=== PATIENT | male | born 1980 | race Caucasian/White ===

== ENCOUNTER → 2020-01-04 | Outpatient (CLI) | payer OTHER ==
--- NOTE | 2020-01-05 06:32 | XR ---
EXAMINATION TYPE: XR cervical spine limited DATE OF EXAM: 01/04/2020 TECHNIQUE: Frontal, lateral, swimmers, and open mouth view of the cervical spine are obtained. HISTORY: Paresthesia of skin pain and numbness into extremities. COMPARISON: None FINDINGS: The cervical spine is visualized in its entirety from C1 thru the top of T1 level, it is s traightened in alignment without evidence of acute fracture or dislocation. The pre-vertebral soft t issue appears within normal limits. The C1-C2 articulation is within normal limits on the open mouth view. Vertebral body heights and disc space heights are maintained. Overlying soft tissue is unremar kable. IMPRESSION: As above.
--- NOTE | 2020-01-05 06:34 | XR ---
EXAMINATION TYPE: XR lumbar spine 2 or 3V DATE OF EXAM: 01/04/2020 CLINICAL HISTORY: Low back pain causing numbness and pain down both legs for one month. TECHNIQUE: Frontal and lateral images of the lumbar spine are obtained. COMPARISON: None FINDINGS: There are 5 lumbar type vertebral bodies identified. There is transitional type [id number] a noted. The lumbar spine shows satisfactory alignment without evidence of acute fracture or dislocat ion. Vertebral body heights and disk space heights are within normal limits. The overlying soft tissu e appears unremarkable. IMPRESSION: As above.
== END | disposition home or self-care (01) ==
LOC: RAD 16:38
PROVIDERS: ATTEND Family Medicine
DX: R20.2 Paresthesia of skin (principal)
CPT/HCPCS: 72040; 72100

== ENCOUNTER 2020-10-20 11:46 | Emergency (ER) | payer OTHER ==
[2020-10-20 12:02] VITALS: BP 120/66; PULSE 63; RESP 18; TEMP 97.8
[2020-10-20] MEDS ORDERED: FLUORESCEIN STRIPS 1 MG STRIP BOTH EYES ONE (12:26)
[2020-10-20] MEDS ORDERED: PROPARACAINE 0.5% OPHTH DROPS 15 ML BTL BOTH EYES STA (12:26)
--- NOTE | 2020-10-20 12:38 | ED ---
General Adult HPI - General Chief complaint: Eye Problems Stated complaint: IHS Metal in Lt Eye Time Seen by Provider: 10/20/20 11:56 Source: patient Mode of arrival: ambulatory Limitations: no limitations - History of Present Illness Initial comments: Dictation was produced using [employer] dictation software. please excuse any grammatical, word or spelling errors. Chief Complaint: 40-year-old male presents with foreign body in the eye History of Present Illness: Patient is a 32-year-old male who presents today with piece of metal in his eye. He is wearing eye protection. He was grinding metal when he felt a small piece get into his eye. He looked member noticed that there was a black speck to his left cornea. Patient can feel when he blinks. Denies any excessive eye watering. The ROS documented in this emergency department record has been reviewed and confirmed by me. Those systems with pertinent positive or negative responses have been documented in the HPI. All other systems are other negative and/or noncontributory. PHYSICAL EXAM: General Impression: Alert and oriented x3, not in acute distress HEENT: Normocephalic atraumatic, extra-ocular movements intact, pupils equal and reactive to light bilaterally, mucous membranes moist. Cardiovascular: Heart regular rate and rhythm Chest: Able to complete full sentences, no retractions, no tachypnea Motor: no focal deficits noted Neurological: CN II-XII grossly intact, no focal motor or sensory deficits noted Skin: Intact with no visualized rashes Psych: Normal affect and mood Eye: Left eye shows small piece of metal approximately 1 mm from the medial portion of the pupil ED course: 40-year-old male who presents with foreign body in the left eye. All signs upon arrival are within acceptable limits. Proparacaine drops were applied with improvement of symptoms. Q-tip was used to removed metal foreign body. Fluorescein testing shows no corneal tears. Patient be discharged. - Related Data Previous Rx's Medication Instructions Recorded Ibuprofen [Motrin] 600 mg PO Q6HR PRN #20 tab 12/12/15 Sulfamethox-Tmp 800-160Mg [Bactrim 2 each PO Q12HR #56 tab 12/12/15 Ds] Allergies Allergy/AdvReac Type Severity Reaction Status Date / Time No Known Allergies Allergy Verified 10/20/20 12:01 Review of Systems ROS Statement: Those systems with pertinent positive or pertinent negative responses have been documented in the HPI. ROS Other: All systems not noted in ROS Statement are negative. Past Medical History Past Medical History: No Reported History History of Any Multi-Drug Resistant Organisms: None Reported Past Surgical History: No Surgical Hx Reported Past Psychological History: No Psychological Hx Reported Smoking Status: Current every day smoker Past Alcohol Use History: None Reported Past Drug Use History: Marijuana General Exam Limitations: no limitations Course Vital Signs 10/20/20 11:58 Temperature 97.8 F Pulse Rate 63 Respiratory 18 Rate Blood Pressure 120/66 O2 Sat by Pulse 98 Oximetry Disposition Clinical Impression: Eye foreign body Disposition: HOME SELF-CARE Condition: Good Instructions (If sedation given, give patient instructions): Eye Foreign Body (ED) Is patient prescribed a controlled substance at d/c from ED?: No Referrals: Hayes Salcido MD [Primary Care Provider] - 1-2 days
== END 2020-10-20 13:17 | disposition home or self-care (01) ==
LOC: EC 11:46
DX: T15.01XA Foreign body in cornea, right eye, initial encounter (principal); F17.200 Nicotine dependence, unspecified, uncomplicated; W45.8XXA Other foreign body or object entering through skin, initial encounter; Y93.89 Activity, other specified; Y99.0 Civilian activity done for income or pay
CPT/HCPCS: 65220; 99283

== ENCOUNTER 2022-02-16 10:12 | Emergency (ER) | payer OTHER ==
[2022-02-16 10:17] VITALS: BP 135/61; PULSE 93; RESP 18; TEMP 97.9
[2022-02-16] MEDS ORDERED: KETOROLAC 15 MG/ML 1 ML VIAL IM STA (10:24)
--- NOTE | 2022-02-16 10:36 | ED ---
Extremity Problem HPI - General Chief complaint: Extremity Problem,Nontraumatic Stated complaint: right leg pain Time Seen by Provider: 02/16/22 10:18 Source: patient, RN notes reviewed, old records reviewed Mode of arrival: ambulatory - History of Present Illness Initial comments: Well-appearing 41-year-old male presents to the emergency room ambulatory with complaints of right knee pain. Patient states that he was standing in the kitchen and felt a pop on the right lateral side. Patient states has had increased pain with flexion and ambulation since. No previous injuries to this knee. Denies any previous medical history. No medications on a daily basis. Patient is a daily smoker, does smoke marijuana. Denies any IV drug use. No recent surgeries. MD Complaint: extremity pain, joint swelling (right knee) -: days(s) (1) Location: right, knee History of Same: No Severity scale (1-10): 5 Associated Symptoms: denies other symptoms - Related Data Previous Rx's Medication Instructions Recorded Ibuprofen [Motrin] 600 mg PO Q6HR PRN #20 tab 12/12/15 Sulfamethox-Tmp 800-160Mg [Bactrim 2 each PO Q12HR #56 tab 12/12/15 Ds] Ibuprofen [Motrin] 600 mg PO Q8HR PRN #30 tab 02/16/22 Allergies Allergy/AdvReac Type Severity Reaction Status Date / Time No Known Allergies Allergy Verified 02/16/22 10:17 Review of Systems ROS Statement: Those systems with pertinent positive or pertinent negative responses have been documented in the HPI. ROS Other: All systems not noted in ROS Statement are negative. Past Medical History Past Medical History: No Reported History History of Any Multi-Drug Resistant Organisms: None Reported Past Surgical History: No Surgical Hx Reported Past Psychological History: No Psychological Hx Reported Smoking Status: Current every day smoker Past Alcohol Use History: None Reported Past Drug Use History: Marijuana General Exam Limitations: no limitations General appearance: alert, in no apparent distress Head exam: Present: atraumatic Eye exam: Absent: scleral icterus, conjunctival injection, periorbital swelling Respiratory exam: Absent: respiratory distress, accessory muscle use Cardiovascular Exam: Present: regular rate GI/Abdominal exam: Present: soft Extremities exam: Present: normal capillary refill. Absent: pedal edema, joint swelling, calf tenderness Right Hip exam: Absent: tenderness, external rotation, internal rotation, shortening Upper Leg exam: Absent: tenderness, swelling Knee exam: Present: tenderness, full knee extension. Absent: swelling, abrasion, laceration, ecchymosis, deformity, erythema, effusion Lower Leg exam: Absent: tenderness, swelling Ankle exam: Absent: tenderness, swelling Foot/Toe exam: Absent: tenderness, swelling Neurovascular tendon exam: Present: no vascular compromise. Absent: abnormal cap refill, extremity cold to touch, pallor, foot drop, peroneal nerve deficit Gait: antalgic Neurological exam: Present: alert, oriented X3 Psychiatric exam: Present: normal affect, normal mood Skin exam: Present: warm, dry, normal color. Absent: cyanosis, diaphoretic, petechiae, pallor Course Vital Signs 02/16/22 10:14 Temperature 97.9 F Pulse Rate 93 Respiratory 18 Rate Blood Pressure 135/61 O2 Sat by Pulse 100 Oximetry Medical Decision Making - Medical Decision Making Patient presents with 1 day of right lateral knee pain denies injury. X-ray interpreted by me shows no evidence of acute fracture. Radiologist impression no acute fracture or dislocation. Soft tissue unremarkable. Patient is able to ambulate. He does have good range of motion, with full knee extension. Pulses are present, no swelling to the lower leg, no calf pain. This is likely a knee strain. He was given Toradol for pain directed to take Tylenol Motrin at home. Rest, ice and elevate. Follow up with his primary care doctor for continuation of care or orthopedics if pain persists. Case discussed with Dr. Meyers Disposition Clinical Impression: Knee pain, right Disposition: HOME SELF-CARE Condition: Good Instructions (If sedation given, give patient instructions): Knee Pain (ED) Additional Instructions: Rest, ice, elevate and take Motrin as prescribed for inflammation. Follow up with primary care doctor next week. If pain persists you can follow up with orthopedics for continuation of care. Return to the emergency room with any new or concerning symptoms. Prescriptions: Ibuprofen [Motrin] 600 mg PO Q8HR PRN #30 tab PRN Reason: Pain Is patient prescribed a controlled substance at d/c from ED?: No Referrals: Hayes Salcido MD [Primary Care Provider] - 1-2 days Nicolasa Varela DO [Doctor of Osteopathic Medicine] - 1-2 days Time of Disposition: 10:47
--- NOTE | 2022-02-16 10:48 | XR ---
EXAMINATION TYPE: XR knee complete RT DATE OF EXAM: 02/16/2022 CLINICAL HISTORY: pain TECHNIQUE: Three views of the right knee are obtained. COMPARISON: None. FINDINGS: There is no acute fracture/dislocation. The tri-compartment joint spaces appear within no rmal limits. The overlying soft tissue appears unremarkable. IMPRESSION: There is no acute fracture or dislocation.ICD 10 NO FRACTURE, INITIAL EVALUATION
== END 2022-02-16 10:56 | disposition home or self-care (01) ==
LOC: EC 10:12
DX: M25.561 Pain in right knee (principal); F17.200 Nicotine dependence, unspecified, uncomplicated; F12.90 Cannabis use, unspecified, uncomplicated
CPT/HCPCS: 73562; 99283; 96372; J1885